=== PATIENT | female | born 1975 | race Caucasian/White ===

== ENCOUNTER → 2017-04-01 | Outpatient (CLI) | payer OTHER | LOC: FIMAGING 13:03 | PROVIDERS: ATTEND Obstetrics & Gynecology | DX: O09.521 Supervision of elderly multigravida, first trimester (principal); O34.219 Maternal care for unspecified type scar from previous cesarean delivery; Z3A.12 12 weeks gestation of pregnancy ==

== ENCOUNTER → 2017-05-04 | Outpatient (CLI) | payer OTHER | LOC: FIMAGING 09:40 | PROVIDERS: ATTEND Obstetrics & Gynecology | DX: O09.522 Supervision of elderly multigravida, second trimester (principal); Z3A.17 17 weeks gestation of pregnancy ==

== ENCOUNTER → 2017-06-01 | Outpatient (CLI) | payer OTHER | LOC: FIMAGING 09:19 | PROVIDERS: ATTEND Obstetrics & Gynecology | DX: O09.522 Supervision of elderly multigravida, second trimester (principal); Z3A.21 21 weeks gestation of pregnancy; Z98.891 History of uterine scar from previous surgery ==

== ENCOUNTER → 2017-08-16 | Outpatient (CLI) | payer OTHER | LOC: FIMAGING 08:04 | PROVIDERS: ATTEND Obstetrics & Gynecology | DX: O09.523 Supervision of elderly multigravida, third trimester (principal); Z3A.32 32 weeks gestation of pregnancy; O34.219 Maternal care for unspecified type scar from previous cesarean delivery ==

== ENCOUNTER 2017-10-12 07:25 | Inpatient (IN) | payer OTHER ==
[2017-10-12 07:34] VITALS: TEMP 98.4
--- NOTE | 2017-10-12 07:44 | EDPHY ---
H & P Stated Complaint: SOB Time Seen by Provider: 10/12/17 07:39 HPI/ROS: CHIEF COMPLAINT: Shortness of breath HISTORY OF PRESENT ILLNESS: This patient is a 42 year old female complaining of shortness of breath. One week ago, she had a cesarian section at 39 weeks and 2 days and delivered a healthy baby boy. She was discharged home from [facility] four days ago. For the last three days, she has become increasingly short of breath. She initially thought she may have cold symptoms and tried Ibuprofen to relieve her discomfort. Her shortness of breath is worse in the evenings and she has more difficulty lying supine - this makes her feel anxious and as if she cannot take a deep breath. She endorses some discomfort in her back and chest and also a mild headache. She has also noted lower extremity edema, increased since her C section. She denies cough, sore throat, rhinorrhea, otalgia, or other associated symptoms. She does cough voluntarily to try to resolve her symptoms. REVIEW OF SYSTEMS: A ten point review of systems was performed and is negative with the exception of the items mentioned in the HPI. She is breast feeding. Past medical history: . Past surgical history: Cesarian section x2. Family history: Noncontributory. Social history: SUPPORT SERVICES REP: Dr. Perez. Lives in [place]. . General Appearance: Alert. Vital signs reviewed. Blood pressure 142/100 at triage. Eyes: Pupils equal and round, no conjunctival injection, no discharge. Anicteric. ENT, Mouth: Mucous membranes are moist, no oropharyngeal erythema or edema. Neck: No lymphadenopathy, supple. No JVD. Respiratory: Lungs are clear to auscultation; no wheezes, rales, or rhonchi. Cardiovascular: Regular rate and rhythm; no murmur, rub, or gallop. Gastrointestinal: Well healing incision with mild incisional erythema , steri strips in place. Mild incisional tenderness. Abdomen is soft and nontender, no masses or organomegaly, bowel sounds normal. Skin: Warm and dry, no rashes on exposed skin, normal color. Back: Nontender to palpation over the thoracolumbar spine. No CVAT. Extremities: 1-2+ pitting edema to knees bilaterally. No calf tenderness or swelling. Pulses: 2+ dorsalis pedis and 2+ radial pulses bilaterally. Neurological: Alert and oriented. Moving all four extremities easily and equally. Psychiatric: Normal affect. 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), Knee Surgery R & L ACL repair 1994, 2005, HPV, H /O Anxiety and Depression no meds now no current problems - Social History Smoking Status: Former smoker Constitutional: Initial Vital Signs Temperature (C) 36.9 C 10/12/17 07:31 Heart Rate 69 10/12/17 07:31 Respiratory Rate 16 10/12/17 07:31 Blood Pressure 142/100 H 10/12/17 07:31 O2 Sat (%) 95 10/12/17 07:31 O2 Delivery Mode Room Air Allergies/Adverse Reactions: latex Allergy (Verified 10/12/17 07:30) Home Medications: Medication Instructions Recorded Herbals/Supplements -Info Only 1 ea PO DAILY 10/12/17 Hydrocodone/Acetaminophen [Cambridge 1 - 2 tab PO Q4-6PRN PRN 10/12/17 5/325 (*)] Ibuprofen [Motrin (*)] 600 mg PO Q6HRS PRN 10/12/17 Medical Decision Making - Diagnostics Imaging: I viewed and interpreted images myself ED Course/Re-evaluation: 42 year old female s/p cesarian section one week ago presents with three day history of worsening shortness of breath. Exam reveals 1-2+ pitting edema to knees bilaterally. Cesarian section incision appears well-healing, no signs of infection. Plan for labs including CBC, chemistries, BNP. Initial concerns are for cardiomegaly, eclampsia, infection (influenza, pneumonia). I do not suspect endometritis, incisional infection, intra- abdominal abscess. 08:13 Reviewed chest x-ray. Evidence of cardiomegaly. Pending radiologist review. Radiologist report concurs, patchy infiltrate at right lung base, some left basilar atelectasis. See full report. BNP elevated at 3520. 09:[address] Centeno, SUPPORT SERVICES REP. Plan for additional labs including liver, coag, UA. Plan for echocardiogram. LFTs elevated, no proteinuria. Remains hypertensive (150s/90s). Per nurse report, initial phone report of echocardiogram is that there is mild cardiomegaly. Plan to consult with cardiology. Spoke with Dr. Loco, downstream biomanufacturing technician director of online education. He reviewed echocardiogram and reports a normal EF, no significant cardiomegaly. I have not seen a written report of echo results. 11:[address] Centeno. Plan to admit patient here in [place] for continued evaluation, diureses, treatment of preeclampsia. Patient prefers to remain in [place] for treatment, rather than being transferred to [facility]. 12:[address] Richardson, SUPPORT SERVICES REP director of online education. She accepts admission for preeclampsia, cardiomegaly. 14:[address] Richardson, awaiting bed for patient. - Data Points Laboratory Results: Laboratory Results 10/12/17 08:00 10/12/17 08:00 Medications Given: Hydrocodone Bitart/Acetaminophen (Cambridge 5/325) 1 - 2 tab PO Q4HRS PRN PRN Reason: Pain, Moderate Able to Take PO Stop: 10/22/17 18:49 Last Admin: 10/14/17 02:18 Dose: 1 tab Magnesium Sulfate 20 gm/ (Dextrose) 500 mls @ 50 mls/hr IV CONT LEW Stop: 04/10/18 14:29 Last Admin: 10/13/17 13:37 Dose: 500 mls Lactated Ringer's (Lr) 1,000 mls @ 75 mls/hr IV CONT LEW Stop: 04/11/18 04:59 Last Admin: 10/13/17 05:07 Dose: 1,000 mls Cefazolin Sodium (Cefazolin Syringe) 2 gm in 20 mls @ 200 mls/hr IVP Q8H LEW Stop: 11/12/17 20:59 Last Admin: 10/14/17 05:15 Dose: 20 mls Ibuprofen (Motrin) 600 mg PO Q6HRS PRN PRN Reason: Pain, Inflammatory Stop: 04/10/18 18:49 Last Admin: 10/14/17 07:57 Dose: 600 mg Discontinued Medications Albuterol (Proventil Neb) 3 ml IH ONCE ONE Stop: 10/13/17 16:31 Last Admin: 10/13/17 16:43 Dose: 3 ml Furosemide (Lasix Injection) 20 mg IVP ONCE ONE Stop: 10/12/17 14:06 Last Admin: 10/12/17 15:36 Dose: 20 mg Magnesium Sulfate (Magnesium Sulf 4 Gm (Premix)) 100 mls @ 200 mls/hr IV ONCE ONE Stop: 10/12/17 14:35 Last Admin: 10/12/17 15:46 Dose: 100 mls Magnesium Sulfate (Magnesium Sulfate 20 Gm/ 500 Ml (Premix)) 500 mls @ 50 mls/ hr IV CONT LEW Stop: 04/10/18 14:29 Last Admin: 10/12/17 16:48 Dose: 500 mls Cefazolin Sodium/Dextrose (Ancef 2 Gm (Premix)) 100 mls @ 200 mls/hr IV Q8H LEW Stop: 10/13/17 20:59 Last Admin: 10/13/17 13:19 Dose: 100 mls Departure - Departure Disposition: [facility] Inpatient Acute Clinical Impression: Cardiomegaly Preeclampsia Qualifiers: Trimester: unspecified trimester Qualified Code(s): O14.90 - Unspecified pre- eclampsia, unspecified trimester Condition: Fair Report Scribed for: Lucía Caldwell Report Scribed by: Adela Hoang Date of Report: 10/12/17 Time of Report: 07:46 Physician Review and Approval Statement: 10/12/17 07:43 Portions of this note were transcribed by the medical pathology teacher. I, Dr. Lucía Caldwell, personally performed the history, physical exam, and medical decision- making; and confirmed the accuracy of the information in the transcribed note.
[2017-10-12 08:06] LABS: PLATELET COUNT 283 10^3/uL (150-400)
[2017-10-12 10:26] LABS: INR 0.93 (0.83-1.16); PROTIME(PATIENT) 12.7 SEC (12.0-15.0)
[2017-10-12 13:25] VITALS: BP 150/98
[2017-10-12] MEDS ORDERED: FUROSEMIDE 20 MG/2 ML VIAL IVP ONE (14:05)
[2017-10-12] MEDS ORDERED: MAGNESIUM SULF 4 GM/WATER 100 ML IV ONE (14:06)
[2017-10-12] MEDS ORDERED: CALCIUM GLUC 10% 1 GM/10 ML VIAL IVP PRN (14:06)
[2017-10-12] MEDS ORDERED: Mag Sulf 500 ML IV SCH (14:30)
--- NOTE | 2017-10-12 16:37 | GHP ---
[f rep st] PREOP HISTORY AND PHYSICAL DATE OF ADMISSION: 10/12/2017 ADMITTING DIAGNOSIS: Seven days post section with preeclampsia and shortness of breath. HISTORY OF PRESENT ILLNESS: The patient is a 42-year-old, 6, para 2-0-4-2, who is 7 days sta tus post a repeat lower transverse section at 39 weeks that was performed at [facility] by Dr. Perez. Patient had a history of with G1, elected to have a repeat section, an d it was performed at 39 weeks because of deceleration on monitor strip. Patient's surgery was uncomplicated and her initial course was reported to be uncomplicated. Patient had suresh l blood pressures and was discharged home on postop day 3. Patient reports over the last 2 days, she had increasing headaches, significant nausea and vomiting, decrease of appetite, some diarrhea, and felt like she was" getting a flu or virus." She tried to medicate with ibuprofen and hydrocodone, wh ich did not help at all. She started developing a cough and shortness of breath and overnight on the 15 to the morning of the , she had significant shortness of breath and felt like she could not lie flat and catch her breath. She presented to the emergency department at [facility] and was found to have elevated blood pressures. Her temperature was 36.9. Blood pressures were elevated 142/100, 158/98, 150/98. Patient had a chest x-ray that revealed hyper-ventilatory features with moderate bronchitis and mild cardiomegaly. She had patchy infiltrate at the right lung base wi th a small right pleural effusion and some basilar subsegmental atelectasis. She had labs that were checked and she was found to have preeclampsia. Pertinent labs: Her white count was 10.37, hemoglobin was 9.9, hematocrit was 28.9, and platelets we re 283. Her BUN was 8. Her creatinine was 0.7. Her AST was 97, ALT was 180, alkaline phosphatase w as 142. Her urine was positive for blood, but negative for protein specifically. She had a cardiolo gy evaluation with an echocardiogram, which showed a normal ejection fraction of 55% and mild cardiom egaly, and the decision was made to proceed with transfer to Labor and Delivery for magnes ium and inpatient management. PAST MEDICAL HISTORY: Significant for: 1. Depression, depression. 2. History of infertility which she worked up with an HSG. 3. History of anxiety. 4. History of arthritis, for which she uses medical marijuana occasionally. 5. She also has a history of a positive PPD. She took isoniazid for 9 months in college. PAST OBSTETRICAL HISTORY: She is 8. She had 1 full-term for breech 8-1/2 years ag o. She has had 4 terminations, miscarriages. No D and C was required. PAST SURGICAL HISTORY: Patient has had a knee scope and the previous 2 C-sections. ALLERGIES: She has no known drug allergies. PAST GYNECOLOGICAL HISTORY: She does have positive HPV and a history of abnormal Paps. No other leigh atment for the abnormal Paps. No other STDs. SOCIAL HISTORY: Patient is . She lives with her and her 2 sons. 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 Her baby is 7 days old. LABORATORY DATA: Her labs are O-positive. The rest of her OB labs were normal. REVIEW OF SYSTEMS: Patient is still feeling short of breath, feels congested, and has a slight cough . She says she has a significant headache. She denies scotomata. She does still feel nauseous, has not been able to tolerate much food in the last couple of days. Has not had recurrent diarrhea, but did have episodes of diarrhea. Has mild discomfort in her incision but overall, that has been healing well. She is currently breast feedings, struggling slightly with milk supply. Negative review of systems otherwise. OBJECTIVE: VITAL SIGNS: Today, she is afebrile. Temperature 36.9. Blood pressures were elevated 1 40s to 158 over 98 to 100. Pulse 63, respiratory rate 16. She is 96% on room air. GENERAL: She is a well-developed, well-nourished white female in no acute distress. LUNGS: Diminished sounds in th e right bases, but no rales or rhonchi. Moving good air. HEART: Regular rate and rhythm. No murmu rs. ABDOMEN: Soft, nondistended. Normal bowel sounds. UTERUS: Fundus is firm. Umbilicus -4. He r incision is clean, dry, and intact. Looks good. PELVIC: Deferred. EXTREMITIES: She does have 2 + pitting edema and 3+, 3+ DTRs with 1-2 beats of clonus. ASSESSMENT AND PLAN: A 42-year-old 6, para 2-0-4-2, who is 7 days status post repeat lower t ransverse section with preeclampsia and pulmonary edema. Patient is admitted to Labor and Delivery. I will give her 1 dose of IV Lasix to clear her pulmonary edema prior to startin g magnesium sulfate at 4 g bolus 2 g an hour. We will repeat her PIH labs in the morning and assess her closely. I will watch her blood pressure curve and if she needs IV hypertensives, we will give t hem to her. She is going to have a entry level sales consultant to help with pumping and/or possible donor m ilk for her baby, who is 7 days old. /[id number]/MODL
[2017-10-12] MEDS ORDERED: MAGNESIUM SULFATE 20 GM in D5W 500 ML IV SCH (17:00)
[2017-10-12] MEDS: IBUPROFEN 600 MG TAB PO PRN (19:21)
[2017-10-12] MEDS ORDERED: ceFAZolin 3 GM in D5W 100 ML IV SCH (20:30)
--- NOTE | 2017-10-12 20:31 | OBPP ---
Progress Note Assessment/Plan: Assessment: 42 y/o POD #7 s/p repeat LTCS now with PP pre-eclampsia and pulmonary edema Plan: She is diuresing well with IV Lasix and MgSo4, BP have improved and her LEONARD is also much better. She had a fever this evening and because of a possible infiltrate on her CXR with the fever, I added Cefazolin 2g Q 8 hours. We will continue Mg So4 for at least 24 hours and will check PIH labs in the am. 10/12/17 20:27 Subjective/ Course: 10/12/17 20:25 Pt is feeling better this evening. Her LEONARD is improved with Ibuprofen, she is breathing more comfortably and reports better SOB. She is nursing her baby now who is doing well. Objective: Total Bilirubin 0.3 mg/dL (0.1-1.4) 10/12/17 08:00 Conjugated Bilirubin 0.2 mg/dL (0.0-0.5) 10/12/17 08:00 Unconjugated Bilirubin 0.1 mg/dL (0.0-1.1) 10/12/17 08:00 AST 97 IU/L (14-46) H 10/12/17 08:00 ALT 180 IU/L (9-52) H 10/12/17 08:00 Temp Pulse Resp BP Pulse Ox 36.9 C 63 16 150/98 H 96 10/12/17 07:31 10/12/17 13:24 10/12/17 13:24 10/12/17 13:24 10/12/17 13:24 T max 38 Uterine Position/Fundal Height: Umbilicus -3 Uterine Tone: Firm Physical Exam - Physical Exam Respiratory: chest non-tender, lungs clear, normal breath sounds Cardiac/Chest: regular rate, rhythm Extremities: swelling (1+)
[2017-10-12] MEDS: ceFAZolin 2 GM/DEXTROSE 100 ML IV SCH (20:45)
[2017-10-13] MEDS: IBUPROFEN 600 MG TAB PO PRN ×2 (01:57→13:34)
[2017-10-13] MEDS: MAGNESIUM SULFATE 20 GM in D5W 500 ML IV SCH ×2 (03:02→13:37)
[2017-10-13] MEDS: ceFAZolin 2 GM/DEXTROSE 100 ML IV SCH ×2 (04:59→13:19)
[2017-10-13] MEDS ORDERED: LR 1,000 ML IV SCH (05:00)
[2017-10-13] MEDS: HYDROCODONE/APAP 5/325 TAB PO PRN (06:18)
[2017-10-13 06:24] LABS: PLATELET COUNT 287 10^3/uL (150-400)
--- NOTE | 2017-10-13 10:50 | OBPP ---
Progress Note Assessment/Plan: Assessment: HD 2 admitted with preeclampsia with pulm edema, HTN and elevated LFTs on magnesium sulfate until 4pm B/P good, UOP 4.3 liters since 3pm yesterday, LFTS improving SOB improved, pulse ox normal on RA low grade temp last noc and 38.2 now - WBCs stable today - mild signs of cellulitis Plan: Cont ancef, recheck CXR to eval if any signs of infiltrate 10/13/17 10:37 Subjective/ Course: 10/12/17 20:25 Pt is feeling better this evening. Her LEONARD is improved with Ibuprofen, she is breathing more comfortably and reports better SOB. She is nursing her baby now who is doing well. 10/13/17 10:50 Pt doing better - feels SOB much better, still with LEONARD this am - better after Tylenol. nausea gone and sonia reg diet. producing milk well and pumping. bld is light. nontender uterus. no dysuria but slight sensory change when bladder emptying. Feels raspy when breathing Objective: 10/13/17 06:10 10/13/17 06:10 Uric Acid 5.6 mg/dL (2.5-6.8) 10/13/17 06:10 Total Bilirubin 0.3 mg/dL (0.1-1.4) 10/12/17 08:00 Conjugated Bilirubin 0.2 mg/dL (0.0-0.5) 10/12/17 08:00 Unconjugated Bilirubin 0.1 mg/dL (0.0-1.1) 10/12/17 08:00 AST 40 IU/L (14-46) 10/13/17 06:10 ALT 134 IU/L (9-52) H 10/13/17 06:10 Lactate Dehydrogenase 702 IU/L (313-618) H 10/13/17 06:10 Temp Pulse Resp BP Pulse Ox 36.9 C 63 16 150/98 H 96 10/12/17 07:31 10/12/17 13:24 10/12/17 13:24 10/12/17 13:24 10/12/17 13:24 Uterine Position/Fundal Height: Umbilicus -2 Uterine Tone: Firm Physical Exam - Physical Exam Respiratory: lungs clear (no crackles or rhonchi), normal breath sounds ( diminished in RLQ), decreased breath sounds (RLQ) Abdomen: non-tender, soft, other (mild erythema on edges and under incision - edges marked) Extremities: non-tender, pedal edema (+2 up to knees) Skin: normal color, warm/dry Neuro/Psych: alert, normal mood/affect
[2017-10-13] MEDS ORDERED: DOCUSATE SODIUM 100 MG CAP PO SCH (12:15)
[2017-10-13] MEDS ORDERED: ALBUTEROL 3 ML DEYVIAL IH ONE (16:30)
[2017-10-13 16:50] VITALS: PULSE 93; RESP 14; O2SAT 91
[2017-10-13] MEDS ORDERED: ALBUTEROL 3 ML DEYVIAL IH PRN (17:58)
--- NOTE | 2017-10-13 18:07 | OBPP ---
Progress Note Assessment/Plan: Assessment: UPDATE - PT OFF MAGNESIUM AND DOING WELL. B/P OK AND SYMPTOMATICALLY DOING WELL. ERYTHEMA BETTER SLIGHTLY HD 2 admitted with preeclampsia with pulm edema, HTN and elevated LFTs on magnesium sulfate until 4pm B/P good, UOP 4.3 liters since 3pm yesterday, LFTS improving SOB improved, pulse ox normal on RA low grade temp last noc and 38.2 now - WBCs stable today - mild signs of cellulitis Plan: Cont ancef, WILL RECHECK CBC IN AM. cont nebulizer tx prn 10/13/17 10:37 10/13/17 18:03 Subjective/ Course: 10/12/17 20:25 Pt is feeling better this evening. Her LEONARD is improved with Ibuprofen, she is breathing more comfortably and reports better SOB. She is nursing her baby now who is doing well. 10/13/17 10:50 Pt doing better - feels SOB much better, still with LEONARD this am - better after Tylenol. nausea gone and sonia reg diet. producing milk well and pumping. bld is light. nontender uterus. no dysuria but slight sensory change when bladder emptying. Feels raspy when breathing 10/13/17 18:05 Pt feeling better after nebulizer and off magnesium. pumping and still having good milk supply. bld is light. eager to have mark out. 10/13/17 18:06 Objective: 10/13/17 06:10 10/13/17 06:10 Uric Acid 5.6 mg/dL (2.5-6.8) 10/13/17 06:10 Total Bilirubin 0.3 mg/dL (0.1-1.4) 10/12/17 08:00 Conjugated Bilirubin 0.2 mg/dL (0.0-0.5) 10/12/17 08:00 Unconjugated Bilirubin 0.1 mg/dL (0.0-1.1) 10/12/17 08:00 AST 40 IU/L (14-46) 10/13/17 06:10 ALT 134 IU/L (9-52) H 10/13/17 06:10 Lactate Dehydrogenase 702 IU/L (313-618) H 10/13/17 06:10 Temp Pulse Resp BP Pulse Ox 36.9 C 93 14 150/98 H 91 L 10/12/17 07:31 10/13/17 16:44 10/13/17 16:44 10/12/17 13:24 10/13/17 16:44 Uterine Position/Fundal Height: Umbilicus -1 Uterine Tone: Firm Physical Exam - Physical Exam Abdomen: non-tender, soft, other (incision - CDI, steri-strips removed, erythema slightly less than marked edges) Extremities: non-tender, pedal edema (2+) Skin: normal color, warm/dry
[2017-10-13] MEDS: ceFAZolin 2 GM/SWFI 2 GM/20 ML SYR IVP SCH (20:54)
[2017-10-14] MEDS: HYDROCODONE/APAP 5/325 TAB PO PRN (02:18)
[2017-10-14] MEDS: ceFAZolin 2 GM/SWFI 2 GM/20 ML SYR IVP SCH (05:15)
[2017-10-14 06:00] LABS: PLATELET COUNT 288 10^3/uL (150-400)
[2017-10-14] MEDS: IBUPROFEN 600 MG TAB PO PRN (07:57)
--- NOTE | 2017-10-14 09:11 | OBPP ---
Progress Note Assessment/Plan: Assessment: 42 y/o POD #9 s/p repeat LTCS now with PP pre-eclampsia and pulmonary edema HD # 3 Plan: Pt is s/p magnesium sulfate, BPs stable; pt is asymptomatic Cellulitis appears better, s/p abx-Ancef x 24 hrs Leukocytosis trending down slowly; pt afebrile throughout the night SOB resolved and normal pulse ox Pt is stable for d/c home today Instructions reviewed with pt Keep 2 week post-op appt with Dr. Perez next week 10/14/17 09:13 Subjective/ Course: 10/12/17 20:25 Pt is feeling better this evening. Her LEONARD is improved with Ibuprofen, she is breathing more comfortably and reports better SOB. She is nursing her baby now who is doing well. 10/13/17 10:50 Pt doing better - feels SOB much better, still with LEONARD this am - better after Tylenol. nausea gone and sonia reg diet. producing milk well and pumping. bld is light. nontender uterus. no dysuria but slight sensory change when bladder emptying. Feels raspy when breathing 10/13/17 18:05 Pt feeling better after nebulizer and off magnesium. pumping and still having good milk supply. bld is light. eager to have mark out. 10/13/17 18:06 10/14/17 09:15 Pt seen and examined. Feeling much better. SOB resolved. No futher HAs, nausea or vomiting. Sonia reg diet. Denies any f/c. Pt is OOB, voiding without difficulty. Pumping without difficulty, good milk supply. Mild lochia. She is anxious and ready to get home to her family. Objective: 10/14/17 05:20 10/13/17 06:10 Uric Acid 5.6 mg/dL (2.5-6.8) 10/13/17 06:10 Total Bilirubin 0.3 mg/dL (0.1-1.4) 10/12/17 08:00 Conjugated Bilirubin 0.2 mg/dL (0.0-0.5) 10/12/17 08:00 Unconjugated Bilirubin 0.1 mg/dL (0.0-1.1) 10/12/17 08:00 AST 40 IU/L (14-46) 10/13/17 06:10 ALT 134 IU/L (9-52) H 10/13/17 06:10 Lactate Dehydrogenase 702 IU/L (313-618) H 10/13/17 06:10 Temp Pulse Resp BP Pulse Ox 36.9 C 93 14 150/98 H 91 L 10/12/17 07:31 10/13/17 16:44 10/13/17 16:44 10/12/17 13:24 10/13/17 16:44 Uterine Position/Fundal Height: Umbilicus -2 Uterine Tone: Firm Physical Exam - Physical Exam Respiratory: lungs clear (slightly decreased at bases), normal breath sounds Cardiac/Chest: regular rate, rhythm, edema Abdomen: normal bowel sounds, non-tender, soft, flatus (+), incision (C/D/I, minimal erythema noted, nontender) Extremities: non-tender, normal inspection, pedal edema, swelling DTR- Lower Extremities: Plantar (R): 1+, Plantar (L): 1+ Skin: normal color, warm/dry Neuro/Psych: alert, normal mood/affect, oriented x 3
== END 2017-10-14 11:00 | disposition home or self-care (01) | DRG 776 ==
LOC: FLD 15:08
PROVIDERS: ADMIT Obstetrics & Gynecology; ATTEND Obstetrics & Gynecology
DX: O14.95 Unspecified pre-eclampsia, complicating the puerperium (principal); Z87.891 Personal history of nicotine dependence
CPT/HCPCS: 96374; J0610; J0690; J1940; J3475; J7613

== ENCOUNTER → 2017-10-16 | Outpatient (CLI) | payer OTHER | LOC: BMCIMAGING 10:32 | PROVIDERS: ATTEND Emergency Medicine | DX: J81.0 Acute pulmonary edema (principal) ==